=== PATIENT | female | born 1980 | race Two or more races ===

== ENCOUNTER → 2019-04-20 | Outpatient (CLI) | payer OTHER ==
--- NOTE | 2019-04-20 17:37 | RAD ---
Examination: PELVIS W/TV History: Pelvic pain, left oophorectomy Comparison/Correlation: None Findings: Transabdominal and transvaginal pelvic ultrasound exam was performed. Transvaginal technique was utilized to better assess the adnexal structures. Uterus measures 11.3 cm x 4.4 cm x 6.2 cm. Diffuse fibroid involvement is noted. Endometrial thickness is 0.6 cm. Fibroid involving the mid uterine segment measuring up to 3.5 cm diameter is present. Right ovary measures 3.3 cm x 2.6 cm x 2.7 cm. No right adnexal mass. Normal right ovarian flow is evident. No left pelvic mass. No pelvic free fluid. Impression: Fibroid uterus. Left nephrectomy. Electronically signed by: Curt Birch MD (04/20/2019 5:34 PM) [facility]
== END | disposition home or self-care (01) ==
LOC: US 15:23
PROVIDERS: ATTEND Physician Assistant Surgical
DX: D25.9 Leiomyoma of uterus, unspecified (principal); Z90.5 Acquired absence of kidney; Z90.721 Acquired absence of ovaries, unilateral
CPT/HCPCS: 76830; 76856